=== PATIENT | female | born 1985 | race Two or more races ===

== ENCOUNTER 2024-02-07 15:55 | Emergency (ER) | payer OTHER ==
[~2024-02-07] VITALS: Ht 160 cm; Wt 74.8 kg
[~2024-02-07 15:55] MED LIST: CELEBREX100 MG PO; INTESTINEX680 M1 PO; LEVSIN/SL0.125 MG SL; OMEPRAZOLE-BIC1 EAC1 PO; ONDANSETRON ODT4 MG PO; PEPCID40 MG PO; PREDNISONE5 MG/DOSE- PO; SKELAXIN800 MG PO
[2024-02-07] MEDS ORDERED: ACETAMINOPHEN 500 MG GEL..CAP PO ONE (19:30)
[2024-02-07] MEDS ORDERED: DEXAMETHASONE SODIUM PHOSPHATE 4 MG/ML VIAL IM ONE (20:00)
[2024-02-07] MEDS ORDERED: KETOROLAC TROMETHAMINE 60 MG VIAL IM ONE (20:00)
== END 2024-02-07 20:28 ==
LOC: ER 15:55
DX: S06.899A Other specified intracranial injury with loss of consciousness of unspecified duration, initial encounter (principal); W18.2XXA Fall in (into) shower or empty bathtub, initial encounter; Y93.89 Activity, other specified; Y92.018 Other place in single-family (private) house as the place of occurrence of the external cause